=== PATIENT | male | born 1980 | race Caucasian/White ===

== ENCOUNTER 2022-06-02 09:24 | Outpatient (CLI) | payer BC, SELFPAY ==
[2022-06-02 19:56] LABS: Appearance Urine Clear (Clear); Bilirubin Urine Negative (Negative); Blood Urine Negative (Negative); Color Urine Yellow (Yellow); Glucose Urine UA Negative (Negative); Ketones Urine Negative (Negative); Leukocyte Esterase Ur Negative LEU/UL (NEGATIVE); Nitrate Urine Negative (Negative); Protein Urine Negative (Negative); Specific Grav Ur >= 1.030 (1.001-1.035); Urobilinogen Urine 0.2 mg/dL (<2.0); pH Urine 5.5 (5.0-9.0)
[2022-06-02 19:57] LABS: Add Urine Microscopic? NO
== END 2022-06-02 09:25 | disposition home or self-care (01) ==
LOC: ANHBWCLAB 09:27
PROVIDERS: PCP Family Medicine; Visit Provider Family Medicine
DX: N50.89 Other specified disorders of the male genital organs (principal)
CPT/HCPCS: 81003; 87086

== ENCOUNTER → 2022-06-03 14:33 | Outpatient (CLI) | payer BC, SELFPAY ==
--- NOTE | ~2022-06-03 | US_ITS ---
EXAMINATION: US scrotum doppler DATE: 06/03/2022 14:57 INDICATION: N49.2 - Inflammatory disorders of scrotum . Lump noted since Wednesday. TECHNIQUE: Grayscale and Doppler ultrasound images of the testes were obtained. COMPARISON: None. FINDINGS: The right testis measures 4.6 x 2.5 x 3.1 cm. The left testis measures 4.5 x 2.4 x 3.2 cm. No testicular mass. There is normal vascular flow to both testes. The right epididymis is slightly la rger than the left and contains a cyst, with normal vascular flow. The left epididymis is normal with normal vascular flow. No hydrocele. Small bilateral varicoceles, slightly larger on the left. IMPRESSION: Bilateral varicoceles, slightly larger on the left. The left varicocele corresponds with the area of concern. Reviewed, dictated and finalized at location K. IMPRESSION: Bilateral varicoceles, slightly larger on the left. The left varicocele corresp onds with the area of concern.
== END ==
PROVIDERS: PCP Family Medicine; Visit Provider Family Medicine
DX: N49.2 Inflammatory disorders of scrotum (principal); I86.1 Scrotal varices
CPT/HCPCS: 76870; 93976

== ENCOUNTER 2022-07-02 13:47 | Outpatient (CLI) | payer BC, SELFPAY ==
[2022-07-02 18:49] LABS: Alanine Aminotransferase 56 U/L (6-50); Albumin Level 4.6 g/dL (3.5-5.1); Alkaline Phosphatase 82 U/L (38-126); Anion Gap 10 mmol/L (8-16); Aspartate Amino Transferase 55 U/L (17-59); Bilirubin,Total 0.4 mg/dL (0.2-1.3); Blood Urea Nitrogen 13 mg/dL (9-20); Carbon Dioxide 29 mmol/L (22-30); Chloride 104 mmol/L (98-107); Cholesterol 198 mg/dL (0-200); Estimated Glomerular Filt Rate > 60; Glucose 72 mg/dL (65-110); HDL Direct 40 mg/dL; Potassium 3.9 mmol/L (3.4-5.0); Sodium 143 mmol/L (137-145); Triglycerides 155 mg/dL (<150)
[2022-07-02 18:56] LABS: Hematocrit 48.2 % (42.0-52.0); Hemoglobin 16.2 g/dL (14.0-18.0); Mean Corpuscular HGB Conc 33.6 g/dl (32-36); Mean Corpuscular Hemoglobin 28.4 pg (26-34); Mean Corpuscular Volume 84.6 fl (80-100); Mean Platelet Volume 9.2 fl (7.4-10.4); Platelet Count Result 433 k/mm3 (150-375); Red Cell Distribution Width 12.6 % (11.5-14.5)
[2022-07-02 19:00] LABS: LDL Cholesterol Direct 108 mg/dL
== END 2022-07-02 13:48 | disposition home or self-care (01) ==
LOC: ANHBWCLAB 13:48
PROVIDERS: PCP Family Medicine; Visit Provider Family Medicine
DX: Z00.00 Encounter for general adult medical examination without abnormal findings (principal)
CPT/HCPCS: 36415; 80053; 80061; 85027

== ENCOUNTER 2023-07-05 14:32 | Outpatient (CLI) | payer BC, SELFPAY ==
[2023-07-05 19:22] LABS: Basophils Absolute Auto 0.1 K/mm3 (0.0-0.1); Basophils Percent Auto 0.7 % (0.2-1.2); Eosinophils Absolute Auto 0.2 K/mm3 (0-0.3); Eosinophils Percent Auto 1.6 % (0-4.4); Hematocrit 50.5 % (42.0-52.0); Hemoglobin 17.1 g/dL (14.0-18.0); Immature Granulocyte Absolute 0.03 K/mm3 (0.00-0.031); Immature Granulocyte Percent A 0.3 % (0-0.5); Lymphocytes Absolute Auto 2.77 K/mm3 (0.9-3.2); Mean Corpuscular HGB Conc 33.9 g/dl (32-36); Mean Corpuscular Volume 85.6 fl (80-100); Mean Platelet Volume 9.5 fl (7.4-10.4); Monocytes Absolute Auto 0.9 K/mm3 (0.1-0.6); Monocytes Percent Auto 9.2 % (2.6-8.5); Neutrophils Absolute Auto 5.7 K/mm3 (1.3-6.7); Neutrophils Percent Auto 59.2 % (45.5-73.1); Platelet Count Result 310 k/mm3 (150-375); Red Cell Distribution Width 12.3 % (11.5-14.5); White Blood Count 9.6 K/mm3 (4.5-10.0)
[2023-07-05 21:18] LABS: Alanine Aminotransferase 53 U/L (6-50); Albumin Level 4.5 g/dL (3.5-5.1); Alkaline Phosphatase 77 U/L (38-126); Anion Gap 10 mmol/L (8-16); Aspartate Amino Transferase 71 U/L (17-59); Bilirubin,Total 0.5 mg/dL (0.2-1.3); Blood Urea Nitrogen 13 mg/dL (9-20); Calcium 9.4 mg/dL (8.4-10.2); Carbon Dioxide 27 mmol/L (22-30); Chloride 102 mmol/L (98-107); Cholesterol 198 mg/dL (0-200); Estimated Glomerular Filt Rate > 60; Glucose 88 mg/dL (65-110); HDL Direct 59 mg/dL; Potassium 4.1 mmol/L (3.4-5.0); Sodium 139 mmol/L (137-145); Triglycerides 165 mg/dL (<150)
[2023-07-05 21:19] LABS: Hepatitis B Surface Antigen Negative (Negative)
[2023-07-05 21:25] LABS: HAV RESULT Negative (Negative); Hepatitis B Core IgM Result Negative (Negative)
[2023-07-05 21:29] LABS: LDL Cholesterol Direct 95 mg/dL
[2023-07-05 21:36] LABS: Hepatitis C Virus Antibody Negative (Negative)
== END 2023-07-05 14:33 | disposition home or self-care (01) ==
LOC: ANHBWCLAB 14:34
PROVIDERS: PCP Family Medicine; Visit Provider Family Medicine
DX: Z00.00 Encounter for general adult medical examination without abnormal findings (principal); R79.89 Other specified abnormal findings of blood chemistry; R74.8 Abnormal levels of other serum enzymes
CPT/HCPCS: 36415; 80053; 80061; 80074; 82248; 85025

== ENCOUNTER 2024-07-18 07:57 | Outpatient (CLI) | payer BC, SELFPAY ==
[2024-07-18 13:47] LABS: Alanine Aminotransferase 60 U/L (6-50); Albumin Level 4.4 g/dL (3.5-5.1); Alkaline Phosphatase 83 U/L (38-126); Anion Gap 3 mmol/L (4-12); Aspartate Amino Transferase 151 U/L (17-59); Bilirubin,Total 0.8 mg/dL (0.2-1.3); Blood Urea Nitrogen 17 mg/dL (9-20); Calcium 9.2 mg/dL (8.4-10.2); Carbon Dioxide 31 mmol/L (22-30); Chloride 104 mmol/L (98-107); Cholesterol 205 mg/dL (0-200); Estimated Glomerular Filt Rate > 60; Glucose 78 mg/dL (65-110); HDL Direct 58 mg/dL; Potassium 4.6 mmol/L (3.4-5.0); Sodium 138 mmol/L (137-145); Triglycerides 115 mg/dL (<150)
[2024-07-18 13:48] LABS: Hemoglobin 17.1 g/dL (14.0-18.0); Mean Corpuscular HGB Conc 32.9 g/dl (32-36); Mean Corpuscular Hemoglobin 29.2 pg (26-34); Mean Corpuscular Volume 88.9 fl (80-100); Mean Platelet Volume 9.2 fl (7.4-10.4); Platelet Count Result 319 k/mm3 (150-375); Red Blood Count 5.85 M/mm3 (4.6-6.20); Red Cell Distribution Width 12.2 % (11.5-14.5)
[2024-07-18 13:59] LABS: LDL Cholesterol Direct 104 mg/dL
[2024-07-18 14:22] LABS: Hepatitis B Surface Antigen Negative (Negative)
[2024-07-18 14:28] LABS: HAV RESULT Negative (Negative); Hepatitis B Core IgM Result Negative (Negative)
[2024-07-18 14:40] LABS: Hepatitis C Virus Antibody Negative (Negative)
== END 2024-07-18 07:58 | disposition home or self-care (01) ==
LOC: ANHGOSHLAB 07:59
PROVIDERS: PCP Family Medicine; Visit Provider Family Medicine
DX: Z00.00 Encounter for general adult medical examination without abnormal findings (principal); R74.8 Abnormal levels of other serum enzymes; R79.89 Other specified abnormal findings of blood chemistry
CPT/HCPCS: 36415; 80053; 80061; 80074; 85027

== ENCOUNTER 2024-07-22 07:19 | Outpatient (CLI) | payer BC, SELFPAY ==
--- NOTE | ~2024-07-22 | US_ITS ---
EXAMINATION: US abdomen limited DATE: 07/22/2024 07:40 INDICATION: Abnormal levels of other serum enzymes. TECHNIQUE: Multiple grayscale and Doppler ultrasound images of the abdomen were obtained. COMPARISON: None FINDINGS: The visualized portions of the head and body of the pancreas are normal. There is diffuse h epatic steatosis. No liver surface nodularity. There is normal flow in main portal vein. The gallblad dick is normal in size. No gallstones or gallbladder wall thickening. There is no sonographic Johnson s ign. The common duct is normal and measures 4 mm. IMPRESSION: 1. Diffuse hepatic steatosis. Reviewed, dictated and finalized at location A. [employer]
== END 2024-07-22 07:20 | disposition home or self-care (01) ==
LOC: MICIMG 07:20
PROVIDERS: PCP Family Medicine; Visit Provider Family Medicine
DX: R74.8 Abnormal levels of other serum enzymes (principal); K76.0 Fatty (change of) liver, not elsewhere classified
CPT/HCPCS: 76705

== ENCOUNTER 2025-07-04 06:32 | Outpatient (CLI) | payer BC, SELFPAY ==
[2025-07-04 18:53] LABS: Alanine Aminotransferase 37 U/L (6-50); Albumin Level 4.4 g/dL (3.5-5.1); Alkaline Phosphatase 88 U/L (38-126); Aspartate Amino Transferase 66 U/L (17-59); Bilirubin,Total 0.8 mg/dL (0.2-1.3); Total Protein 7.9 g/dL (6.3-8.2)
[2025-07-04 19:40] LABS: Ferritin 163.00 ng/mL (17.9-464); Iron 149 ug/dL (49-181); Percent Iron Saturation 57 % (20-50)
== END 2025-07-04 06:33 | disposition home or self-care (01) ==
PROVIDERS: PCP Family Medicine; Visit Provider Family Medicine
DX: R74.01 Elevation of levels of liver transaminase levels (principal)
CPT/HCPCS: 36415; 80076; 82103; 82728; 83540; 83550